=== PATIENT | female | born 1965 | race Caucasian/White ===

== ENCOUNTER 2020-03-08 19:22 | Emergency (ER) | payer BC ==
[~2020-03-08] VITALS: Ht 180.3 cm; Wt 90.7 kg
[2020-03-08 19:36] VITALS: BP_SYST 127
--- NOTE | 2020-03-08 19:40 | NUR ---
Placed in room 5 . Placed on surveillance monitor, blood pressure machine and pulse oximeter. To gown for exam. Side rails up. Report RECEIVED FROM LIZETTE RUST.
--- NOTE | 2020-03-08 19:42 | NUR ---
ER DR. MCINTYRE AT THE BEDSIDE EVALUATING PT
--- NOTE | 2020-03-08 19:45 | NUR ---
Vinay escobedo in [facility] - 03/08/[address] Verdin at [facility].
--- NOTE | 2020-03-08 19:50 | NUR ---
PT PRESENTS FROM HOME WITH C/O BILATERAL EYE PAIN WITH MOVEMENT, HTN, ANXIETY WITH SOME TIGHTNESS IN CHEST. REPORTS HX OF DEPRESSION, ANXIETY, AND HTN. DENIES ANY CP,SOB, DIZZINESS. AAOX4, ELEVATED BP @ 129/104 UPON ARRIVAL.
[2020-03-08] MEDS ORDERED: cloNIDine HCL 0.1 MG TABLET PO ONE (20:00)
--- NOTE | 2020-03-08 20:18 | NUR ---
P moved to bed 7
--- NOTE | 2020-03-08 20:40 | NUR ---
Patient transported to radiology via AMBULATION, accompanied by STAFF.
--- NOTE | 2020-03-08 20:50 | NUR ---
Pt returns from radiology. No needs verbalized at this time.
[2020-03-08] MEDS ORDERED: LORazepam 1 MG TABLET PO ONE (22:00)
--- NOTE | 2020-03-08 22:35 | NUR ---
Per order of Dr. Hunter, Pt given Ativan 2 mg PO and instructed to take medication when she gets home. Pt verbalizes understanding.
[2020-03-08 22:36] VITALS: BP_SYST 124
--- NOTE | 2020-03-08 22:36 | NUR ---
Patient given written and verbal discharge instructions and verbalizes understanding. ER MD discussed with patient the results and treatment provided. Patient in stable condition. ID arm band removed. No Rx given. Patient educated on pain management and to follow up with PMD. Pain Scale 0/10. Opportunity for questions provided and answered. Medication side effect fact sheet provided.
== END 2020-03-08 22:36 | disposition home or self-care (01) ==
LOC: SED 19:22
DX: F41.9 Anxiety disorder, unspecified (principal)
CPT/HCPCS: 70450-TC; 76376; 93005; 99284